=== PATIENT | male | born 1975 ===

== ENCOUNTER 2019-06-26 09:21 | Emergency (ER) | payer OTHER ==
--- NOTE | 2019-06-26 10:09 | UC ---
Lower Extremity/Ankle HPI - HPI Summary HPI Summary: 44 yo male presents, accompanied by his friend, with a right foot complaint. Pt speaks little Romansh, thus his friend with him today is translating. 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 Had pain at the time, but improved. Over the last 2 weeks has noticed a fluid-like bump appearing on top of his foot where the cow stepped on him. Becoming larger and more painful as time has gone on. Nothing OTC for treatment. 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 Onset/Duration: Gradual Onset Severity Initially: Mild Severity Currently: Moderate Pain Intensity: 5 Pain Scale Used: 0-10 Numeric Aggravating Factor(s): Standing, Ambulation Alleviating Factor(s): Rest - Allergies/Home Medications Allergies/Adverse Reactions: Allergies Allergy/AdvReac Type Severity Reaction Status Date / Time No Known Allergies Allergy Verified 06/26/19 09:42 Home Medications: Home Medications NK [No Home Medications Reported] 06/26/19 [History Confirmed 06/26/19] PMH/Surg Hx/FS Hx/Imm Hx - Additional Past Medical History Additional PMH: None - Surgical History Surgical History: None - Social History Occupation: Employed Full-time Lives: With Family Alcohol Use: Occasionally Substance Use Type: None Smoking Status (MU): Never Smoked Tobacco Review of Systems All Other Systems Reviewed And Are Negative: No Constitutional: Positive: Negative Skin: Positive: Other - Mass right foot Respiratory: Positive: Negative Cardiovascular: Positive: Negative Neurovascular: Positive: Negative Musculoskeletal: Positive: Negative Neurological: Positive: Negative Psychological: Positive: Negative Physical Exam - Summary Physical Exam Summary: GENERAL: NAD. WDWN. No pain distress. SKIN: RIGHT FOOT: Dorsal aspect overlying the 1st mid MT there is a 2.0cm easily fluctuant raised bump that is slightly ttp. No induration, erythema, or open wound. FROM of toe. CHEST: No accessory muscle use. Breathing comfortably and in no distress. CV: Pulses intact. Cap refill <2seconds NEURO: Alert. PSYCH: Age appropriate behavior. Triage Information Reviewed: Yes Vital Signs: Initial Vital Signs Temp 98.5 F 12/10/19 09:38 Pulse 73 06/26/19 09:38 Resp 18 06/26/19 09:38 BP 135/85 06/26/19 09:38 Pulse Ox 100 06/26/19 09:38 Vital Signs Reviewed: Yes Diagnostics - Radiology Foot XR Radiology Interpretation Completed By: Radiologist Summary of Radiographic Findings: IMPRESSION: No fracture of the right foot is noted. Lower Extremity Course/Dx - Course Course Of Treatment: The procedure was explained to the pt and all questions were answered. A time out was performed, witnessed, and signed. The area was cleansed with an alcohol pad. 0.5mL of 2% lidocaine without epi was administered and good anesthetization was achieved. A #11 blade was used to make a 5mm incision at the central most part of the cyst. Copious clear thin fluid was expressed and cyst depressed. The wound was bandaged with telfa . Pt tolerated procedure well. I suspect this may be a tendon cyst. Advised to keep pressure to the area with a bandage and if returns to f/u with Ortho for possible removal. - Differential Dx/Diagnosis Provider Diagnosis: Ganglion cyst of foot Discharge ED - Sign-Out/Discharge Documenting (check all that apply): Patient Departure All imaging exams completed and their final reports reviewed: Yes - Discharge Plan Condition: Stable Disposition: HOME Patient Education Materials: Cyst (ED) Referrals: No Primary Care Phys,NOPCP [Primary Care Provider] - Felix Watts MD [Medical Doctor] - If Needed Additional Instructions: If you develop a fever, shortness of breath, chest pain, new or worsening symptoms - please call your PCP or go to the ED immediately. Change the bandage daily until well healed. If the cyst reoccurs - please call Orthopedics at the number below to schedule an appointment for likely removal - Billing Disposition and Condition Condition: STABLE Disposition: Home
[2019-06-26] MEDS ORDERED: Lidocaine 2% PF * 5 ML VIAL INJ ONE (10:59)
== END 2019-06-26 11:59 | disposition home or self-care (01) ==
LOC: UCEAST 09:21 → MERGE 09:21 → UCEAST 11:59
DX: M67.471 Ganglion, right ankle and foot (principal)
CPT/HCPCS: 10060; 99201; G0463